=== PATIENT | female | born 1945 | race Caucasian/White ===

== ENCOUNTER 2023-04-14 10:16 | Outpatient (AMB) | payer OTHER, SELFPAY ==
[2023-04-14 10:17] VITALS: BMI 26.6
--- NOTE | 2023-04-14 10:17 | HO.NEPHOV_ITS ---
HPI HPI Comments History of Present Illness Details I had the pleasure of seeing Carmela in follow-up of her hypertension ( by [employer]). She has been a longstanding patient of mine. She had a hospitalization in March for abdominal pain. Imaging studies done at that time did not show any colitis. She had history of hyperkalemia last year and her spironolactone had been discontinued. She has history of atrial fibrillation which is currently well controlled on current medication regimen. She has no active issues with her Raynaud's. She is ambulating. Her blood pressure is currently at goal on current medication regimen. She denied chest pain, shortness of breath, proximal nocturnal dyspnea, orthopnea, hematuria, flank pain, fever, nausea, vomiting. She does not take any nonsteroidal anti- inflammatories. Her primary care doctor and her team are closely following her in her home. 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 Recurrent urinary tract infection Chronic rhinitis Difficulty in walking, not elsewhere classified Acute cystitis without hematuria Onychomycosis Hypertensive heart disease with heart failure Essential (primary) hypertension CVA (cerebral vascular accident) Other spondylosis with radiculopathy, lumbar region Multilevel degenerative disc disease Carotid atherosclerosis 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 GERD (gastroesophageal reflux disease) (HFpEF) heart failure with preserved ejection fraction A-fib Hyperlipidemia Hypertension Surgical History History of cataract surgery History of cholecystectomy History of right knee joint replacement History of left knee replacement Family History Mother Skin cancer Hypertension Heart disease Father Alzheimer disease Son Renal failure Diabetes Social History (Updated 04/14/23 @ 10:18 by Amber Black MA) Alcohol intake: never Patient Tobacco Use Status: Never used Tobacco Use of substances other than those prescribed or required for medical reasons: No Vital Signs 04/14/23 10:17 Height 5 ft 5 in Weight 160 lb BMI 26.6 Physical Exam Vital Signs: BMI result Body Mass Index 26.6 Assessment & Plan Assessment & Plan (1) Hypertension: Code(s): I10 - Essential (primary) hypertension Qualifiers: Hypertension type: primary hypertension Qualified Code(s): I10 - Essential (primary) hypertension Plan Carmela has longstanding hypertension. She is on diltiazem and losartan. She had history of hyperkalemia last year which has been resolved. Her renal functions are at baseline. Her last serum potassium has been normal. She has history of atrial fibrillation which is under good control. She is on Eliquis. She does not have any orthostatic symptoms. Her blood pressure has been at goal at home. She avoids excess sodium in the diet. I did not make any medication changes today. All her questions and concerns were addressed. Telehealth Telehealth Location of provider rendering services: practice address Location of patient: address on file Patient Identification confirmed using: Name, : Yes Telehealth method: voice only Patient verbally consented to treatment: Yes Patient verbally consented to billing insurance company: Yes Patient informed of any privacy concerns related to visit: No Minutes spent on Phone/Video with Pt.: 10 Coding Level of Care Code Tele Est Pt Level 3 (35531) Diagnoses Primary hypertension I10 Hypertension type: primary hypertension Results Reviewed Nephrology Results: No Data to Display
== END 2023-04-14 13:27 | disposition home or self-care (01) ==
LOC: HO.HKAS 10:16
PROVIDERS: PCP Internal Medicine; Visit Provider Internal Medicine Nephrology
DX: I10 Essential (primary) hypertension (principal)
CPT/HCPCS: 99441

== ENCOUNTER → 2023-04-14 10:16 | Outpatient (BNVA) | payer OTHER, SELFPAY | PROVIDERS: PCP Internal Medicine; Visit Provider Internal Medicine Nephrology ==

== ENCOUNTER 2023-07-14 13:27 | Outpatient (AMB) | payer OTHER, SELFPAY ==
[2023-07-14 13:28] VITALS: BMI 26.1
--- NOTE | 2023-07-14 13:28 | HO.NEPHOV_ITS ---
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 She has been a longstanding patient of mine. She had a hospitalization with rectosigmoid colitis. She had history of hyperkalemia last year and her spironolactone had been discontinued. She has history of atrial fibrillation which is currently well controlled on current medication regimen. Her blood pressure has been on the higher side ever since she has been home more so when she undergoes physical therapy. She has no active issues with her Raynaud's. She is ambulating. She denied chest pain, shortness of breath, proximal nocturnal dyspnea, orthopnea, hematuria, flank pain, nausea, vomiting. She does not take any nonsteroidal anti-inflammatories. Her primary care doctor and her team are closely following her in her home. 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 Recurrent urinary tract infection Chronic rhinitis Difficulty in walking, not elsewhere classified Acute cystitis without hematuria Onychomycosis Hypertensive heart disease with heart failure Essential (primary) hypertension CVA (cerebral vascular accident) Other spondylosis with radiculopathy, lumbar region Multilevel degenerative disc disease Carotid atherosclerosis 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 GERD (gastroesophageal reflux disease) (HFpEF) heart failure with preserved ejection fraction A-fib Hyperlipidemia Hypertension Surgical History History of cataract surgery History of cholecystectomy History of right knee joint replacement History of left knee replacement Family History Mother Skin cancer Hypertension Heart disease Father Alzheimer disease Son Renal failure Diabetes Social History Alcohol intake: never Patient Tobacco Use Status: Never used Tobacco Physical Exam Vital Signs: BMI result Body Mass Index 26.1 Telehealth Telehealth Telehealth Platform: Telephone Location of provider rendering services: practice address Location of patient: address on file Patient Identification confirmed using: Name, : Yes Telehealth method: voice only Patient verbally consented to treatment: Yes Patient verbally consented to billing insurance company: Yes Patient informed of any privacy concerns related to visit: No Minutes spent on Phone/Video with Pt.: 15 Results Reviewed Nephrology Results: No Data to Display Assessment & Plan Assessment & Plan (1) Hypertension: Code(s): I10 - Essential (primary) hypertension Category: Medical Qualifiers: Hypertension type: primary hypertension Qualified Code(s): I10 - Essential (primary) hypertension Plan Carmela has longstanding hypertension. She is on diltiazem and losartan. She had history of hyperkalemia last year which has been resolved after discontinuation of spironolactone. Her renal functions are at baseline. Her last serum potassium has been normal. Her blood pressure is still not at goal. I asked her to go up on losartan to 75 mg daily which she is very reluctant as she had hyperkalemia before. She has history of atrial fibrillation which is under good control. She is on Eliquis. I started her on hydralazine 10 mg b.i.d. and asked her to continue on the rest of her current medication regimen. She does not have any orthostatic symptoms. She avoids excess sodium in the diet. I did not make any other medication changes today. All her questions and concerns were addressed. Agreed for follow-up in 3 months unless there is any other active issues which needs urgent attention. Medications: New hydralazine 10 mg PO BID 30 days 60 tabs 3RF Coding Level of Care Code Tele Est Pt Level 4 (80926) Diagnoses Primary hypertension I10 Hypertension type: primary hypertension
== END 2023-07-14 16:48 | disposition home or self-care (01) ==
LOC: HO.HKAS 13:27
PROVIDERS: PCP Internal Medicine; Visit Provider Internal Medicine Nephrology
DX: I10 Essential (primary) hypertension (principal)
CPT/HCPCS: 99442

== ENCOUNTER → 2023-07-14 13:27 | Outpatient (BNVA) | payer OTHER, SELFPAY | PROVIDERS: PCP Internal Medicine; Visit Provider Internal Medicine Nephrology ==

== ENCOUNTER 2023-10-13 13:16 | Outpatient (AMB) | payer OTHER, SELFPAY ==
[2023-10-13 13:15] VITALS: BMI 26.1
--- NOTE | 2023-10-13 13:15 | HO.NEPHOV_ITS ---
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 She has been a longstanding patient of mine. She had history of hyperkalemia last year and her spironolactone had been discontinued at that time. She has history of atrial fibrillation which is currently well controlled on current medication regimen. Her serum potassium has been high normal. She is on losartan. Her BP is still not at goal. She has no active issues with her Raynaud's. She is ambulating. She denied chest pain, shortness of breath, proximal nocturnal dyspnea, orthopnea, hematuria, flank pain, nausea, vomiting. She does not take any nonsteroidal anti-inflammatories. 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 Recurrent urinary tract infection Chronic rhinitis Difficulty in walking, not elsewhere classified Acute cystitis without hematuria Onychomycosis Hypertensive heart disease with heart failure Essential (primary) hypertension CVA (cerebral vascular accident) Other spondylosis with radiculopathy, lumbar region Multilevel degenerative disc disease Carotid atherosclerosis 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 GERD (gastroesophageal reflux disease) (HFpEF) heart failure with preserved ejection fraction A-fib Hyperlipidemia Hypertension Surgical History History of cataract surgery History of cholecystectomy History of right knee joint replacement History of left knee replacement Family History Mother Skin cancer Hypertension Heart disease Father Alzheimer disease Son Renal failure Diabetes Social History Alcohol intake: never Patient Tobacco Use Status: Never used Tobacco Review of Systems Const All systems reviewed & are unremarkable except as noted in HPI and below Physical Exam Vital Signs: BMI result Body Mass Index 26.1 Telehealth Telehealth Telehealth Platform: Telephone Location of provider rendering services: practice address Location of patient: address on file Patient Identification confirmed using: Name, : Yes Telehealth method: voice only Patient verbally consented to treatment: Yes Patient verbally consented to billing insurance company: Yes Patient informed of any privacy concerns related to visit: No Minutes spent on Phone/Video with Pt.: 10 Results Reviewed Nephrology Results: No Data to Display Assessment & Plan Assessment & Plan (1) Hypertension: Code(s): I10 - Essential (primary) hypertension Category: Medical Qualifiers: Hypertension type: primary hypertension Qualified Code(s): I10 - Essential (primary) hypertension (2) Hyperkalemia: Code(s): E87.5 - Hyperkalemia Category: Medical Plan Carmela has longstanding hypertension. She is on diltiazem and losartan. She had history of hyperkalemia last year which has been better after discontinuation of spironolactone. Her renal functions are at baseline. I started her on Kionex 30 Gram once a week. Her blood pressure is still not at goal. I increased her hydralazine to 20 mg b.i.d. and asked her to continue on the rest of her current medication regimen. She has history of atrial fibrillation which is under good control. She is on Eliquis. She does not have any orthostatic symptoms. She avoids excess sodium in the diet. I did not make any other other medication changes today. All her questions and concerns were addressed. Agreed for follow-up in 3 months unless there is any other active issues which needs urgent attention. Needs monitoring of serum K which she is going to discuss with PCP/team Medications: New sodium polystyrene sulfonate 30 grams orally once a week; 453.6 grams 3RF Changed From hydralazine 10 mg PO BID 180 tabs 1RF To hydralazine 20 mg (2 x 10 mg) PO BID 90 days 360 tabs 1RF Coding Level of Care Code Tele Est Pt Level 4 (84742) Diagnoses Primary hypertension I10 Hypertension type: primary hypertension Hyperkalemia E87.5
== END 2023-10-15 14:18 | disposition home or self-care (01) ==
PROVIDERS: PCP Internal Medicine; Visit Provider Internal Medicine Nephrology
DX: I10 Essential (primary) hypertension (principal); E87.5 Hyperkalemia
CPT/HCPCS: 99214

== ENCOUNTER → 2023-10-13 13:16 | Outpatient (BNVA) | payer OTHER, SELFPAY | PROVIDERS: PCP Internal Medicine; Visit Provider Internal Medicine Nephrology ==

== ENCOUNTER 2024-01-12 12:12 | Outpatient (AMB) | payer OTHER, SELFPAY ==
--- NOTE | 2024-01-12 11:57 | HO.NEPHOV_ITS ---
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 She has been a longstanding patient of mine. She had history of hyperkalemia last year and her spironolactone had been discontinued at that time. She has history of atrial fibrillation which is currently well controlled on current medication regimen. Her serum potassium has been high normal. She is on losartan. Her BP is still not at goal. She has no active issues with her Raynaud's. She is ambulating. She denied chest pain, shortness of breath, proximal nocturnal dyspnea, orthopnea, hematuria, flank pain, nausea, vomiting. She does not take any nonsteroidal anti-inflammatories. 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 Recurrent urinary tract infection Chronic rhinitis Difficulty in walking, not elsewhere classified Acute cystitis without hematuria Onychomycosis Hypertensive heart disease with heart failure Essential (primary) hypertension CVA (cerebral vascular accident) Other spondylosis with radiculopathy, lumbar region Multilevel degenerative disc disease Carotid atherosclerosis 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 GERD (gastroesophageal reflux disease) (HFpEF) heart failure with preserved ejection fraction A-fib Hyperlipidemia Hypertension Surgical History History of cataract surgery History of cholecystectomy History of right knee joint replacement History of left knee replacement Family History Mother Skin cancer Hypertension Heart disease Father Alzheimer disease Son Renal failure Diabetes Social History Alcohol intake: never Patient Tobacco Use Status: Never used Tobacco Review of Systems Const All systems reviewed & are unremarkable except as noted in HPI and below Telehealth Telehealth Telehealth Platform: Telephone Location of provider rendering services: practice address Location of patient: address on file Patient Identification confirmed using: Name, : Yes Telehealth method: voice only Patient verbally consented to treatment: Yes Patient verbally consented to billing insurance company: Yes Patient informed of any privacy concerns related to visit: No Minutes spent on Phone/Video with Pt.: 10 Results Reviewed Nephrology Results: No Data to Display Assessment & Plan Assessment & Plan (1) Hypertension: Code(s): I10 - Essential (primary) hypertension Category: Medical Qualifiers: Hypertension type: primary hypertension Qualified Code(s): I10 - Essential (primary) hypertension Plan Carmela has longstanding hypertension. She is on diltiazem and losartan. She had history of hyperkalemia last year which has been better after discontinuation of spironolactone. Her renal functions are at baseline. She is on Kionex 30 Gram once a week. She should continue on the rest of her current medication regimen. She has history of atrial fibrillation which is under good control. She is on Eliquis. She does not have any orthostatic symptoms. She avoids excess sodium in the diet. I did not make any other other medication changes today. All her questions and concerns were addressed. Agreed for follow-up in 6 months unless there is any other active issues which needs urgent attention. Orders: Orders Blood Urea Nitrogen 6 Months I10 - Essential (primary) hypertension Creatinine 6 Months I10 - Essential (primary) hypertension Electrolytes 6 Months I10 - Essential (primary) hypertension Coding Level of Care Code Tele Est Pt Level 4 (67999) Diagnoses Primary hypertension I10 Hypertension type: primary hypertension
== END 2024-01-12 12:17 | disposition home or self-care (01) ==
PROVIDERS: PCP Internal Medicine; Visit Provider Internal Medicine Nephrology
DX: I10 Essential (primary) hypertension (principal)
CPT/HCPCS: 99441

== ENCOUNTER → 2024-01-12 12:12 | Outpatient (BNVA) | payer OTHER, SELFPAY | PROVIDERS: PCP Internal Medicine; Visit Provider Internal Medicine Nephrology | DX: I10 Essential (primary) hypertension (principal) ==

== ENCOUNTER 2024-07-21 10:34 | Outpatient (AMB) | payer OTHER, SELFPAY ==
--- NOTE | 2024-07-21 10:27 | HO.NEPHOV ---
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 She has been a longstanding patient of [facility]. She had history of hyperkalemia last year and her spironolactone had been discontinued at that time. She has history of atrial fibrillation which is currently well controlled on current medication regimen. Her serum potassium has been high normal. She is on losartan. Her BP is at goal. She has no active issues with her Raynaud's. She denied chest pain, shortness of breath, proximal nocturnal dyspnea, orthopnea, hematuria, flank pain, nausea, vomiting. She does not take any nonsteroidal anti-inflammatories. 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 Recurrent urinary tract infection Chronic rhinitis Difficulty in walking, not elsewhere classified Acute cystitis without hematuria Onychomycosis Hypertensive heart disease with heart failure Essential (primary) hypertension CVA (cerebral vascular accident) Other spondylosis with radiculopathy, lumbar region Multilevel degenerative disc disease Carotid atherosclerosis 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 GERD (gastroesophageal reflux disease) (HFpEF) heart failure with preserved ejection fraction A-fib Hyperlipidemia Hypertension Surgical History History of cataract surgery History of cholecystectomy History of right knee joint replacement History of left knee replacement Family History Mother Skin cancer Hypertension Heart disease Father Alzheimer disease Son Renal failure Diabetes Social History Alcohol intake: never Patient Tobacco Use Status: Never used Tobacco Review of Systems Const All systems reviewed & are unremarkable except as noted in HPI and below Physical Exam Vital Signs: BMI result Body Mass Index 25.0 Telehealth Telehealth Telehealth Platform: Telephone Location of provider rendering services: practice address Location of patient: address on file Patient Identification confirmed using: Name, : Yes Telehealth method: voice only Patient verbally consented to treatment: Yes Patient verbally consented to billing insurance company: Yes Patient informed of any privacy concerns related to visit: No Minutes spent on Phone/Video with Pt.: 10 Results Reviewed Nephrology Results: No Data to Display Assessment & Plan Assessment & Plan (1) Hypertension: Code(s): I10 - Essential (primary) hypertension Category: Medical Qualifiers: Hypertension type: primary hypertension Qualified Code(s): I10 - Essential (primary) hypertension Plan Carmela has longstanding hypertension. She is on diltiazem, hydralazine and losartan. She had history of hyperkalemia last year which has been better after discontinuation of spironolactone. Her renal functions are at baseline. She is on Kionex 30 Gram once a week. She should continue on the rest of her current medication regimen. She has history of atrial fibrillation which is under good control. She is on Eliquis. She does not have any orthostatic symptoms. She avoids excess sodium in the diet. I did not make any other other medication changes today. All her questions and concerns were addressed. Coding Level of Care Code Est Pt Level 4 (74059) Diagnoses Primary hypertension I10 Hypertension type: primary hypertension
[2024-07-21 10:31] VITALS: BMI 25.0
--- OUTSIDE RECORDS SUMMARY | 2024-07-21 11:11 | XMS_ITS | Patient Health Record ---
Author Organization [facility] Address [address] [place] [address] Care Team Providers Care Belt Loop Cutter Name Role Phone Nayana Shimeri Primary Care Provider Unavailab le Allergies Allergen (clinical drug ingredient) Drug/Non Drug Allergy documented on EMR Reaction Allergy Type Onset Date Status lorazepam Ativan Unknown Drug Allergy Active Ceftin Unknown Drug Allergy Active lisinopril Lisinopril Unknown Drug Allergy Activ e nitrofurantoin Nitrofurantoin Unknown Drug Allergy Active Reason For Referral No Information Medications Medication SIG (Take, Route, Frequency, Duration) Notes Start Date End Date Status Nasal [place] Active Ciclopirox 0.77 % 1 application at bed time Externally Once a day for 30 Active tiZANidine HCl 2 MG 1 tablet as needed Orally Three times a day Active Clotrimazole 1 % 1 application Externally Active dilTIAZem HCl ER 120 MG 1 capsule Orally bid Active Loprox 0.77 % 1 application Straight Cutter Machine ally daily Active Omeprazole 20 MG 1 capsule 30 minutes before morning meal Orally Once a day Active Calcium Carbonate-Vitamin D Active Ciclopirox 0.77 % 1 application Straight Cutter Machine ally Once a day for 30 days Active Ketotifen Fumarate 0.025 % 1 drop into a ffected eye Ophthalmic Active Tylenol Active Losartan Potassium 50 MG 1 tablet Orally Once a day Active Aspirin 81 MG 1 tablet Orally Once a day Active Cholecalciferol Acti ve Ciclopirox 8 % 1 application Straight Cutter Machine ally Once a day Active Multivitamin Active Ammonium Lactate 12 % APPLU 1 APPLICATIO N EXTERNALLY DAILY FOR CALLUSES 90 DAYS for 30 Active Eliquis 5 MG as directed Orally daily Active Flecainide Acetate 50 MG as directed Orally Active Problems Problem Type SNOMED Code ICD Code Onset Dates Problem Status W/U Status Risk Notes Problem 962055199 Other specified peripheral vascular diseases (I73.89) Active confirmed Problem [id number] 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) Active confirmed Problem 393004371 Raynaud's disease without gangrene (I73.00) Active confirmed Plan Of Treatment Pending Test Test Name Order Date DRAIN/INJECT, INTERMEDIATE JOINT/BURSA 1 DRAIN/INJECT, INTERMEDIATE JOINT/BURSA 0 03/09/2020 DRAIN/INJECT, INTERMEDIATE JOINT/BURSA 0 06/08/2020 DRAIN/INJECT, INTERMEDIATE JOINT/BURSA 0 09/17/2020 DRAIN/INJECT, INTERMEDIATE JOINT/BURSA 1 Insurance Providers Payer Name Payer Address Payer Phone Subscriber Number Group Number Insured Name Patient Relationship to Insured Coverage Start Date Coverage End Date [facility] [address] [place] [address] [id number] Carmela Youngblood Self - patient is the insured Medications Administered Medication Instructions Date of Administration Dosage Notes Dexamethasone 12/07/2019 0.5 mL Dexamethasone 03/09/2020 0.5 mL Dexamethasone 06/08/2020 0.5 mL Dexamethasone 09/17/2020 0.5 mL Dexamethasone 12/19/2020 0.5 mL Kenalog 12/07/2019 0.5 mL Kenalog 03/09/2020 0.5 mL Kenalog 06/08/2020 0.5 mL Kenalog 09/17/2020 0.5 mL Kenalog 12/19/2020 0.5 mL Medical (General) History Medical History History ICD Code Unspecified atrial fibrillation I48.91 Wedge compression fracture o f unspecified lumbar vertebra, initial encounter for closed fracture S32.000A Spinal stenosis of lumbar re gion, unspecified whether neurogenic claudication present M48.061 Iron deficiency anemia, unspecified D50. 9 Anticoagulant long-term use Z79.01 Cerebral infarction, unspecified I63.9 Other chronic pain G89.29 PVD (peripheral vascular disease) I73.9 Onychomycosis B35.1 Unspecified diastolic (congestive) heart failure I50.30 Vitamin D deficiency, unspecified E55.9 Hyperlipidemia, unspecified E78.5 Raynaud's syndrome without gangrene I73. 00 Occlusion and stenosis of unspecified ve rtebral artery I65.09 Essential hypertension I10 Gastro-esophageal reflux disease without esophagitis K21.9 Concussion with loss of cons ciousness of unspecified duration, initial encounter S06.0X9A
--- OUTSIDE RECORDS SUMMARY | 2024-07-21 11:11 | XMS_ITS | Clinical Summary ---
Author Organization [facility] Address [address] [facility] [facility] [facility] [address] [place] [address] Phone Care Team Providers Care Filer And Sander Name Role Phone Concepcion Colon MD Primary Care Provider [phone] Allergies Active Allergy Reactions Criticality Noted Date Comments Lorazepam 09/05/2020 Ceforanide 09/05/2020 Dicyclomine 07/31/2022 Other reaction(s): dizziness Lisinopril 09/05/2020 Medications Multiple Vitamin (MULTIVITAMIN ADULT PO) Take 1 tablet by mouth 1 (one) time each day Active flecainide (TAMBOCOR) 50 MG tablet Take 1 tablet by mouth 2 (two) times a day Active omeprazole (PriLOSEC) [address] capsule Take 1 capsule by mouth 1 (one) time each day Active tiZANidine (ZANAFLEX) 2 MG tablet Take 1 tablet by mouth every 8 (eight) hours if needed Active Eliquis 5 MG tablet Take 1 tablet by mouth 2 (two) times a day 07/09/2020 Active ascorbic acid (VITAMIN C) 250 MG tablet Take 250 mg by mouth 1 (one) time each day Active magnesium, as gluconate, (MAGONATE) 500 (27 Mg) MG tablet Take 27 mg by mouth 1 (one) time each day Active dilTIAZem CD (CARDIZEM CD) 300 MG 24 hr capsule TAKE 1 CAPSULE BY MOUTH 1 TIME EACH DAY. 90 capsule 1 08/15/2021 Active levETIRAcetam (KEPPRA) 500 MG tablet Take 1 tablet by mouth in the morning and 1 tablet in the evening. 07/02/2022 Active furosemide (Lasix) 20 MG tablet Take 1 tablet (20 mg total) by mouth 1 (one) time each day for 10 days 10 tablet 07/31/2022 Active losartan (COZAAR) 50 MG tablet Take 1 tablet (50 mg total) by mouth 1 (one) time each day 30 tablet 3 07/31/2022 Active Active Problems Problem Noted Date Diagnosed Date Epilepsy 07/31/2022 Chronic back pain 07/31/2022 Aortic valve stenosis 07/31/2022 Hypertension 04/23/2021 Resolved Problems Problem Noted Date Diagnosed Date Resolved Date Pain in finger 04/23/2021 05/07/2021 Venous varices 04/23/2021 05/07/2021 Atrial fibrillation with rap id ventricular response 06/09/2012 05/07/2021 Gastroesophageal reflux disease 06/09/2012 05/07/2021 Gout 06/09/2012 05/07/2021 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 05/07/2021 Raynaud's disease 06/09/2012 05/07/2021 Immunizations Immunization Administration Dates Next Due Pneumococcal Polysaccharide 11/25/2012, 3,05/18/2006 Tdap 04/07/2021 Family History Medical History Relation Comments Kidney disease Child 1 Diabetes Child 2 Dementia Father Heart disease Mother Hypertension Mother Stroke Mother Relation Status Comments Child 1 Child 2 Father Mother Social History Tobacco Use Types Packs/Day Years Used Date Smoking Tobacco: Never Smokeless Tobacco: Never Tobacco Cessation:Counseling Given: Not Answered Alcohol Use Standard Drinks/Week Comments Not Currently 0 (1 standard drink = 0.6 oz pure alcohol) Alcoholic Drinks/day: Occasional social drink Comments Unknown Sex and Gender Information Value Date Recorded Sex Assigned at Not on file Legal Sex Female 5:06 PM EST Gender Identity Not on file Sexual Orientation Not on file Last Filed Vital Signs Vital Sign Reading Time Taken Comments Blood Pressure 156/58 07/31/2022 2:04 PM EDT Pulse 67 07/31/2022 2:04 PM EDT Temperature - - Respiratory Rate - - Oxygen Saturation 99% 12/20/2020 10:44 AM EDT Inhaled Oxygen Concentration - - Weight 78.1 kg (172 lb 3.2 oz) 07/31/2022 2:04 P M EDT Height 167.6 cm (5' 6 ) 05/11/2018 12:01 PM EDT Body Mass Index 27.79 05/11/2018 12:01 PM EDT Plan of Treatment Health Maintenance Due Date Last Done Comments Pneumococcal Vaccine: 50+ Years (3 of 3 - PCV) 11/25/2013 11/25/2012, 10/31/2012, 05/18/2006 Influenza Vaccine (Season Ended) 2024 Pneumococcal Vaccine: Peds (0 to 5 Years) and At-Risk Patients (6 to 49 Years) Discontinued 11/25/2012, 10/31/2012, 05/18/2006 Hepatitis B Vaccine Aged Out No longe r eligible based on patient's age to complete this topic Insurance [facility] MCR ([id number]) [address] [place] [address] [facility] MCR ([id number]) Care Teams Filer And Sander Relationship Specialty Start Date End Date Concepcion Colon MD [address] PCP - General Geriatric Medicine 05/07/21
--- OUTSIDE RECORDS SUMMARY | 2024-07-21 11:11 | XMS_ITS | Patient Health Record ---
Author Organization [facility] Address [address] [place] [address] Care Team Providers Care Beauty Operator Apprentice Name Role Phone MADDISON ANA Primary Care Provider Cade Mckeon Unavailable [phone] Allergies Allergen (clinical drug ingredient) Drug/Non Drug Allergy documented on EMR Reaction Allergy Type Onset Date Status lisinopril Lisinopril Unknown Drug Allergy Activ e cefuroxime Cefuroxime Sodium Unknown Drug Allergy Active lorazepam Ativan Unknown Drug Allergy Active Reason For Referral No Information Medications Medication SIG (Take, Route, Frequency, Duration) Notes Start Date End Date Status dilTIAZem HCl ER Coated Beads 300 MG Oral for 90 Active Omeprazole 20 MG Orally Once a day Active Omeprazole 20 MG Oral for 90 A ctive tiZANidine HCl 2 MG Oral for 30 Active Vitamin D 25 MCG (1000 UT) Oral for 90 Active Ferrous Sulfate 325 (65 Fe) MG Oral for 90 Active Losartan Potassium 100 MG TAKE 1 TABLET BY MOUTH EVERY DAY Oral for 90 Active Eliquis 5 MG TAKE 1 TABLET BY JANA TH 2 TIMES DAILY. Oral for 90 Active D-1000 Extra Strength 25 MCG (1000 UT) TAKE 1 TABLET BY MOUTH EVERY DAY Oral for 90 Active Flecainide Acetate 50 MG TAKE 1 TABLET B Y MOUTH TWICE A DAY Oral for 90 Active Ascorbic Acid 250 MG 1 tablet Orally Onc e a day for 30 day(s) Active Magnesium 500 MG 1 tablet with a meal Orally Once a day for 30 day(s) Active Immunizations Vaccine Route Administration Date Status Comme nts Influenza Unknown 10/31/2020 Administered Problems Problem Type SNOMED Code ICD Code Onset Dates Problem Status W/U Status Risk Notes Problem [id number] Gastroesophageal reflux disease without esophagitis (K21.9) Active confirmed Problem 800065689 Change in bowel function (R19.4) Active confirmed Problem 70306050 Diarrhea, unspecified type (R19.7) Active confirmed Plan Of Treatment Future Test Test Name Order Date COLONOSCOPY 03/27/2016 Insurance Providers Payer Name Payer Address Payer Phone Subscriber Number Group Number Insured Name Patient Relationship to Insured Coverage Start Date Coverage End Date [facility] [address] [place] [address] [id number] CHONG [id number] Self - patient is the insured Medical (General) History Medical History History ICD Code Gout Hypertension Denies MS,DM,Lung disease CVA in 08/2015 Afib Arthritis UTI's GERD-EGD in 03/2007--small to moderate-si zed HH--no esophagitis, no Giles's Negative screening colonosco py in 03/2007--diverticulosis and internal hemorrhoids IBS Negative screening colonoscopy in 04/2016 EGD 04/2021 at [facility] was n eg. except for a small HH; normal duodenal biopsies Colonoscopy 04/2021 at [facility] te was negative--no colitis, no polyps, bx. neg for microscopic colitis Renal-sees Dr. Alcantara for HTN Spinal stenosis Surgical History Surgery Date(Month/Year) Bilateral knee replacements- -left knee x 3 -most recently appprox 2005, and the right knee x 1 in 1996 Cholecystectomy Cataracts
== END 2024-07-21 11:12 | disposition home or self-care (01) ==
LOC: HO.HKAS 10:35
PROVIDERS: PCP Internal Medicine; Visit Provider Internal Medicine Nephrology
DX: I10 Essential (primary) hypertension (principal)
CPT/HCPCS: 99214

== ENCOUNTER → 2024-07-21 10:34 | Outpatient (BNVA) | payer OTHER, SELFPAY | PROVIDERS: PCP Internal Medicine; Visit Provider Internal Medicine Nephrology | DX: I10 Essential (primary) hypertension (principal) | CPT/HCPCS: 99212 ==